=== PATIENT | male | born 1935 | race Caucasian/White ===

== ENCOUNTER 2016-12-14 08:56 | Inpatient (IN) | payer MEDICARE, BC ==
[2016-12-14 09:43] LABS: BASOPHILS % (AUTO) 1 % (0-3); EOSINOPHILS % (AUTO) 0 % (0-9); HEMATOCRIT 44 % (39-53); MEAN CORPUSCULAR HGB CONC 32.7 gm/dl (32.0-36.0); MEAN CORPUSCULAR VOLUME 92 fL (80-100); MONOCYTES % (AUTO) 4.1 % (0-12); NEUTROPHILS % (AUTO) 83.1 % (37-80)
[2016-12-14 10:02] LABS: ALBUMIN 3.3 gm/dl (3.4-5.0); POTASSIUM 4.4 mMol/L (3.5-5.1)
[2016-12-14] MEDS: ACETAMINOPHEN 325 MG PO PRN (11:45)
[2016-12-14] MEDS ORDERED: SODIUM CHLORIDE 0.9% 1000ML 1,000 ML IV ONE (12:29)
[2016-12-14] MEDS ORDERED: NICOTINE 21 MG PATCH TD PRN (12:35)
[2016-12-14 12:53] LABS: APPEARANCE,URINE Clear; BILIRUBIN,URINE NEGATIVE (NEGATIVE); COLOR,URINE Yellow; GLUCOSE, URINE (UA) NEGATIVE (NEGATIVE); KETONES,URINE NEGATIVE (NEGATIVE); LEUKOCYTE ESTERASE ,URINE NEGATIVE (NEGATIVE); NITRATE,URINE NEGATIVE (NEGATIVE); OCCULT BLOOD,URINE NEGATIVE (NEG-TRACE); UROBILINOGEN,URINE 0.2 (0.2-1.0 EU)
[2016-12-14] MEDS ORDERED: SODIUM CHLORIDE 0.9% FLUSH 10 ML SOL IV PRN (13:06)
[2016-12-14 13:22] LABS: RBC,URINE 0-1 (0-3AV/HPF); WBC,URINE 0-1 (0-5AV/HPF)
[2016-12-14] MEDS ORDERED: ALBUTEROL NEB SOL 2.5MG/3ML 1 VIAL SOL NEB PRN (13:43)
[2016-12-14] MEDS ORDERED: POTASSIUM CHLORIDE 2 MEQ/ML SOL IV ONE ×2 (14:15→21:27)
[2016-12-14] MEDS: SODIUM CHLORIDE 0.45% 1000 ML 1,000 ML with POTASSIUM CHLORIDE 2 MEQ/ML 20 MEQ IV SCH ×2 (14:25→21:30)
[2016-12-14] MEDS: PRIMIDONE 250 MG PO SCH ×2 (15:01→21:10)
[2016-12-14] MEDS: ENOXAPARIN 30 MG SOL SC SCH (15:01)
[2016-12-14] MEDS ORDERED: SODIUM CHLORIDE 0.9% 500 ML SOL IV SCH ×2 (17:00→19:15)
[2016-12-14] MEDS ORDERED: SODIUM CHLORIDE 0.9% 500 ML 500 ML IV ONE (20:34)
[2016-12-14] MEDS ORDERED: NOREPINEPHRINE BITARTRATE 4 MG/4 ML SOL IV ONE (21:02)
[2016-12-14] MEDS ORDERED: DEXTROSE 500 ML 500 ML IV ONE (21:04)
[2016-12-14] MEDS: PROPRANOLOL HCL 80 MG PO SCH (21:09)
[2016-12-14] MEDS: SIMVASTATIN 20 MG TAB PO SCH (21:10)
[2016-12-14] MEDS: NOREPINEPHRINE 4 MG/4 ML 4 MG in DEXTROSE 500 ML 500 ML IV SCH (21:17)
[2016-12-15] MEDS ORDERED: POTASSIUM CHLORIDE 2 MEQ/ML SOL IV ONE (02:04)
[2016-12-15] MEDS: ACETAMINOPHEN 325 MG PO PRN (02:19)
[2016-12-15] MEDS: SODIUM CHLORIDE 0.45% 1000 ML 1,000 ML with POTASSIUM CHLORIDE 2 MEQ/ML 20 MEQ IV SCH (03:15)
[2016-12-15] MEDS ORDERED: NOREPINEPHRINE BITARTRATE 4 MG/4 ML SOL IV ONE (03:34)
[2016-12-15] MEDS ORDERED: DEXTROSE 500 ML 500 ML IV ONE (03:34)
[2016-12-15] MEDS: NOREPINEPHRINE 4 MG/4 ML 4 MG in DEXTROSE 500 ML 500 ML IV SCH (05:51)
[2016-12-15 07:38] LABS: BASOPHILS % (AUTO) 2 % (0-3); EOSINOPHILS % (AUTO) 0 % (0-9); HEMATOCRIT 35 % (39-53); MEAN CORPUSCULAR HGB CONC 34.7 gm/dl (32.0-36.0); MEAN CORPUSCULAR VOLUME 91 fL (80-100); MONOCYTES % (AUTO) 7.6 % (0-12); NEUTROPHILS % (AUTO) 75.3 % (37-80)
[2016-12-15 07:40] LABS: CALCIUM 6.8 mg/dl (8.5-10.1); POTASSIUM 4.2 mMol/L (3.5-5.1)
[2016-12-15] MEDS: ENOXAPARIN 30 MG SOL SC SCH (09:30)
[2016-12-15] MEDS: PRIMIDONE 250 MG PO SCH ×3 (09:30→21:49)
[2016-12-15] MEDS: SODIUM CHLORIDE/KCL 20MEQ 1,000 ML IV SCH ×2 (09:30→17:14)
[2016-12-15] MEDS: PROPRANOLOL HCL 80 MG PO SCH ×2 (09:34→21:48)
[2016-12-15] MEDS: TOPIRAMATE 25 MG TAB PO SCH (09:34)
[2016-12-15] MEDS ORDERED: PATIENT EDUCATION 1 MISC PRN (11:19)
[2016-12-15] MEDS: SODIUM CHLORIDE 0.9% FLUSH 10 ML SOL IV SCH ×2 (12:00→21:49)
[2016-12-15] MEDS: SIMVASTATIN 20 MG TAB PO SCH (21:48)
[2016-12-16] MEDS: SODIUM CHLORIDE/KCL 20MEQ 1,000 ML IV SCH (01:17)
[2016-12-16] MEDS: ACETAMINOPHEN 325 MG PO PRN ×2 (01:57→20:39)
[2016-12-16] MEDS: SODIUM CHLORIDE 0.9% FLUSH 10 ML SOL IV SCH ×3 (03:28→18:59)
[2016-12-16 07:17] LABS: CALCIUM 7.3 mg/dl (8.5-10.1); POTASSIUM 4.3 mMol/L (3.5-5.1)
[2016-12-16 07:22] LABS: BASOPHILS % (AUTO) 1 % (0-3); EOSINOPHILS % (AUTO) 2 % (0-9); HEMATOCRIT 34 % (39-53); MEAN CORPUSCULAR HGB CONC 34.7 gm/dl (32.0-36.0); MEAN CORPUSCULAR VOLUME 90 fL (80-100); MONOCYTES % (AUTO) 9.2 % (0-12)
[2016-12-16] MEDS: PRIMIDONE 250 MG PO SCH ×3 (09:51→20:35)
[2016-12-16] MEDS: DEXTROSE/SALINE 0.45% 1,000 ML IV SCH (09:52)
[2016-12-16] MEDS: TOPIRAMATE 25 MG TAB PO SCH (09:52)
[2016-12-16] MEDS: ENOXAPARIN 30 MG SOL SC SCH (09:52)
[2016-12-16] MEDS: SIMVASTATIN 20 MG TAB PO SCH (20:35)
[2016-12-17] MEDS: SODIUM CHLORIDE 0.9% FLUSH 10 ML SOL IV SCH (03:17)
[2016-12-17] MEDS: DEXTROSE/SALINE 0.45% 1,000 ML IV SCH (04:51)
[2016-12-17 06:56] LABS: BASOPHILS % (AUTO) 1 % (0-3); EOSINOPHILS % (AUTO) 4 % (0-9); HEMATOCRIT 36 % (39-53); MEAN CORPUSCULAR HGB CONC 34.7 gm/dl (32.0-36.0); MEAN CORPUSCULAR VOLUME 89 fL (80-100); MONOCYTES % (AUTO) 8.1 % (0-12)
[2016-12-17 07:15] LABS: CALCIUM 7.9 mg/dl (8.5-10.1); POTASSIUM 3.9 mMol/L (3.5-5.1)
[2016-12-17] MEDS ORDERED: FUROSEMIDE 20 MG TAB PO ONE ×2 (08:13→17:58)
[2016-12-17] MEDS: PRIMIDONE 250 MG PO SCH ×3 (08:34→20:27)
[2016-12-17] MEDS: PROPRANOLOL HCL 80 MG PO SCH ×2 (08:35→20:27)
[2016-12-17] MEDS: TOPIRAMATE 25 MG TAB PO SCH (08:35)
[2016-12-17] MEDS: ENOXAPARIN 30 MG SOL SC SCH (08:37)
[2016-12-17] MEDS: ALBUTEROL/IPRATROPIUM 1 VIAL SOL INH SCH ×3 (12:45→20:35)
[2016-12-17] MEDS: SIMVASTATIN 20 MG TAB PO SCH (20:27)
[2016-12-18 07:01] LABS: POTASSIUM 3.6 mMol/L (3.5-5.1)
[2016-12-18 07:12] LABS: BASOPHILS % (AUTO) 1 % (0-3); EOSINOPHILS % (AUTO) 4 % (0-9); HEMATOCRIT 34 % (39-53); MEAN CORPUSCULAR HGB CONC 35.3 gm/dl (32.0-36.0); MEAN CORPUSCULAR VOLUME 88 fL (80-100); MONOCYTES % (AUTO) 9.7 % (0-12)
[2016-12-18] MEDS ORDERED: AZITHROMYCIN 250 MG TAB PO ONE (08:22)
[2016-12-18] MEDS: ALBUTEROL/IPRATROPIUM 1 VIAL SOL INH SCH ×4 (09:30→20:28)
[2016-12-18] MEDS: ENOXAPARIN 30 MG SOL SC SCH (09:33)
[2016-12-18] MEDS: PREDNISONE 20 MG TAB PO SCH (09:33)
[2016-12-18] MEDS: POLYETHYLENE GLYCOL 17 GM/1 TBS PDS PO SCH (09:34)
[2016-12-18] MEDS: PROPRANOLOL HCL 80 MG PO SCH ×2 (09:35→20:28)
[2016-12-18] MEDS: PRIMIDONE 250 MG PO SCH ×3 (09:35→20:28)
[2016-12-18] MEDS: TOPIRAMATE 25 MG TAB PO SCH (09:35)
[2016-12-18] MEDS: SIMVASTATIN 20 MG TAB PO SCH (20:28)
[2016-12-19 07:27] LABS: BASOPHILS % (AUTO) 2 % (0-3); EOSINOPHILS % (AUTO) 3 % (0-9); HEMATOCRIT 37 % (39-53); MEAN CORPUSCULAR VOLUME 90 fL (80-100); MONOCYTES % (AUTO) 8.1 % (0-12); NEUTROPHILS % (AUTO) 66.4 % (37-80)
[2016-12-19 08:02] LABS: CALCIUM 8.3 mg/dl (8.5-10.1); POTASSIUM 4.1 mMol/L (3.5-5.1)
[2016-12-19] MEDS ORDERED: AZITHROMYCIN 250 MG TAB PO SCH (09:00)
[2016-12-19] MEDS: ALBUTEROL/IPRATROPIUM 1 VIAL SOL INH SCH ×4 (10:26→21:54)
[2016-12-19] MEDS: ENOXAPARIN 30 MG SOL SC SCH (10:27)
[2016-12-19] MEDS: POLYETHYLENE GLYCOL 17 GM/1 TBS PDS PO SCH (10:33)
[2016-12-19] MEDS: PRIMIDONE 250 MG PO SCH ×3 (10:33→21:54)
[2016-12-19] MEDS: PREDNISONE 20 MG TAB PO SCH (10:33)
[2016-12-19] MEDS: PROPRANOLOL HCL 80 MG PO SCH ×2 (10:35→21:53)
[2016-12-19] MEDS: TOPIRAMATE 25 MG TAB PO SCH (10:36)
[2016-12-19] MEDS ORDERED: ENOXAPARIN 40 MG SOL SC ONE (11:26)
[2016-12-19] MEDS ORDERED: LEVOFLOXACIN 500 MG TAB PO SCH (12:00)
[2016-12-19] MEDS ORDERED: WARFARIN SODIUM 2.5 MG TAB PO ONE (18:00)
[2016-12-19] MEDS: SIMVASTATIN 20 MG TAB PO SCH (21:54)
[2016-12-19] MEDS: ENOXAPARIN 80 MG SOL SC SCH (21:56)
[2016-12-20 07:16] LABS: BASOPHILS % (AUTO) 2 % (0-3); EOSINOPHILS % (AUTO) 3 % (0-9); HEMATOCRIT 35 % (39-53); MEAN CORPUSCULAR HGB CONC 34.1 gm/dl (32.0-36.0); MEAN CORPUSCULAR VOLUME 89 fL (80-100); MONOCYTES % (AUTO) 8.3 % (0-12); NEUTROPHILS % (AUTO) 59.1 % (37-80)
[2016-12-20 07:17] LABS: POTASSIUM 3.7 mMol/L (3.5-5.1)
[2016-12-20 09:13] VITALS: BP 120/71; RESP 18; TEMP 97.3
[2016-12-20] MEDS: POLYETHYLENE GLYCOL 17 GM/1 TBS PDS PO SCH (09:14)
[2016-12-20] MEDS: PREDNISONE 20 MG TAB PO SCH (09:16)
[2016-12-20] MEDS: ALBUTEROL/IPRATROPIUM 1 VIAL SOL INH SCH (09:16)
[2016-12-20] MEDS: TOPIRAMATE 25 MG TAB PO SCH (09:17)
[2016-12-20] MEDS: PRIMIDONE 250 MG PO SCH (09:17)
[2016-12-20 09:18] VITALS: PULSE 62; O2SAT 92
[2016-12-20] MEDS: ENOXAPARIN 80 MG SOL SC SCH (09:22)
[2016-12-20] MEDS: PROPRANOLOL HCL 80 MG PO SCH (11:21)
== END 2016-12-20 11:30 | disposition swing bed (61) | DRG 640 ==
LOC: ED 08:56 → UNDOADMOB 10:57 → ACUTE CARE 10:57 → OBSVTOIN 20:30
PROVIDERS: ADMIT Family Medicine; ATTEND Family Medicine
PROC: F01ZDFZ Gait and/or Balance Assessment using Assistive, Adaptive, Supportive or Protective Equipment (ICD-10-PCS; principal; 2016-12-17)
PROC: F01ZCZZ Transfer Assessment (ICD-10-PCS; 2016-12-17)
PROC: F01L5ZZ Range of Motion and Joint Integrity Assessment of Musculoskeletal System - Lower Back / Lower Extremity (ICD-10-PCS; 2016-12-17)
DX: E86.0 Dehydration (principal); I26.99 Other pulmonary embolism without acute cor pulmonale; K52.9 Noninfective gastroenteritis and colitis, unspecified; I95.9 Hypotension, unspecified; J18.9 Pneumonia, unspecified organism; J44.9 Chronic obstructive pulmonary disease, unspecified; E11.9 Type 2 diabetes mellitus without complications; R25.1 Tremor, unspecified; I10 Essential (primary) hypertension; E78.00 Pure hypercholesterolemia, unspecified; R09.02 Hypoxemia
CPT/HCPCS: 36415; 71010; 71260; 80048; 80053; 81001; 82962; 84484; 85025; 85610; 87040; 93005; 94010; 94150; 94640; 94664; 99070; 99283; 99284; J1650; J3480; J7603; J7620; Q9967

== ENCOUNTER 2016-12-20 09:08 | Inpatient (IN) | payer MEDICARE, BC ==
[2016-12-20] MEDS ORDERED: ALBUTEROL NEB SOL 2.5MG/3ML 1 VIAL SOL NEB PRN (09:51)
[2016-12-20] MEDS ORDERED: ACETAMINOPHEN 325 MG PO PRN (09:51)
[2016-12-20] MEDS ORDERED: NICOTINE 21 MG PATCH TD PRN (09:52)
[2016-12-20] MEDS ORDERED: ALBUTEROL INH SCH (10:00)
[2016-12-20] MEDS ORDERED: [UNRECOGNIZED DRUG - OTHER] INH SCH (10:00)
[2016-12-20] MEDS: LEVOFLOXACIN 500 MG TAB PO SCH (14:05)
[2016-12-20] MEDS: PRIMIDONE 250 MG PO SCH ×2 (14:05→20:40)
[2016-12-20] MEDS ORDERED: WARFARIN SODIUM 5 MG TAB PO SCH (18:00)
[2016-12-20] MEDS: FLUTICASONE/SALMETEROL 250/50 1 PUFF DSK INH SCH (20:39)
[2016-12-20] MEDS: ENOXAPARIN 80 MG SOL SC SCH (20:39)
[2016-12-20] MEDS: SIMVASTATIN 20 MG TAB PO SCH (20:41)
[2016-12-20] MEDS: PROPRANOLOL HCL 80 MG PO SCH (20:41)
[2016-12-20] MEDS ORDERED: ENOXAPARIN 80 MG SOL SC SCH (21:00)
[2016-12-21] MEDS: PRIMIDONE 250 MG PO SCH ×3 (09:49→21:13)
[2016-12-21] MEDS: FLUTICASONE/SALMETEROL 250/50 1 PUFF DSK INH SCH ×2 (09:50→21:12)
[2016-12-21] MEDS: ENOXAPARIN 80 MG SOL SC SCH ×2 (09:50→21:12)
[2016-12-21] MEDS: PROPRANOLOL HCL 80 MG PO SCH ×2 (09:51→21:13)
[2016-12-21] MEDS: POLYETHYLENE GLYCOL 17 GM/1 TBS PDS PO SCH (09:52)
[2016-12-21] MEDS: PREDNISONE 20 MG TAB PO SCH (09:53)
[2016-12-21] MEDS: TOPIRAMATE 25 MG TAB PO SCH (09:53)
[2016-12-21] MEDS: LISINOPRIL 20 MG TAB PO SCH (09:54)
[2016-12-21] MEDS: LEVOFLOXACIN 500 MG TAB PO SCH (11:45)
[2016-12-21] MEDS: TIOTROPIUM BROMIDE 18 MCG CAP INH SCH (14:40)
[2016-12-21] MEDS ORDERED: WARFARIN SODIUM 2.5 MG TAB PO SCH (18:00)
[2016-12-21] MEDS: SIMVASTATIN 20 MG TAB PO SCH (21:14)
[2016-12-22] MEDS: PRIMIDONE 250 MG PO SCH ×3 (09:00→20:41)
[2016-12-22] MEDS: PROPRANOLOL HCL 80 MG PO SCH ×2 (09:01→20:41)
[2016-12-22] MEDS: POLYETHYLENE GLYCOL 17 GM/1 TBS PDS PO SCH (09:01)
[2016-12-22] MEDS: TOPIRAMATE 25 MG TAB PO SCH (09:02)
[2016-12-22] MEDS: PREDNISONE 20 MG TAB PO SCH (09:02)
[2016-12-22] MEDS: LISINOPRIL 20 MG TAB PO SCH (09:03)
[2016-12-22] MEDS: FLUTICASONE/SALMETEROL 250/50 1 PUFF DSK INH SCH ×2 (09:04→20:41)
[2016-12-22] MEDS: TIOTROPIUM BROMIDE 18 MCG CAP INH SCH (09:04)
[2016-12-22] MEDS: LEVOFLOXACIN 500 MG TAB PO SCH (12:08)
[2016-12-22] MEDS: WARFARIN SODIUM 3 MG TAB PO SCH (17:36)
[2016-12-22] MEDS: SIMVASTATIN 20 MG TAB PO SCH (20:42)
[2016-12-23] MEDS: FLUTICASONE/SALMETEROL 250/50 1 PUFF DSK INH SCH ×2 (08:21→20:16)
[2016-12-23] MEDS: POLYETHYLENE GLYCOL 17 GM/1 TBS PDS PO SCH (08:23)
[2016-12-23] MEDS: PRIMIDONE 250 MG PO SCH ×3 (08:24→20:17)
[2016-12-23] MEDS: PROPRANOLOL HCL 80 MG PO SCH ×2 (08:24→20:16)
[2016-12-23] MEDS: PREDNISONE 20 MG TAB PO SCH (08:24)
[2016-12-23] MEDS: TIOTROPIUM BROMIDE 18 MCG CAP INH SCH (08:25)
[2016-12-23] MEDS: TOPIRAMATE 25 MG TAB PO SCH (08:26)
[2016-12-23] MEDS: LISINOPRIL 20 MG TAB PO SCH (08:27)
[2016-12-23] MEDS: LEVOFLOXACIN 500 MG TAB PO SCH (12:04)
[2016-12-23] MEDS: WARFARIN SODIUM 3 MG TAB PO SCH (17:29)
[2016-12-23] MEDS: SIMVASTATIN 20 MG TAB PO SCH (20:17)
[2016-12-24 08:52] VITALS: RESP 24; O2SAT 93
[2016-12-24] MEDS: POLYETHYLENE GLYCOL 17 GM/1 TBS PDS PO SCH (09:37)
[2016-12-24] MEDS: PROPRANOLOL HCL 80 MG PO SCH ×2 (09:37→20:27)
[2016-12-24] MEDS: PRIMIDONE 250 MG PO SCH ×3 (09:37→20:26)
[2016-12-24] MEDS: LISINOPRIL 20 MG TAB PO SCH (09:38)
[2016-12-24] MEDS: TOPIRAMATE 25 MG TAB PO SCH (09:38)
[2016-12-24] MEDS: FLUTICASONE/SALMETEROL 250/50 1 PUFF DSK INH SCH ×2 (09:39→20:28)
[2016-12-24] MEDS: TIOTROPIUM BROMIDE 18 MCG CAP INH SCH (11:57)
[2016-12-24] MEDS: LEVOFLOXACIN 500 MG TAB PO SCH (11:57)
[2016-12-24] MEDS ORDERED: WARFARIN SODIUM 1 MG TAB PO ONE (18:00)
[2016-12-24] MEDS: SIMVASTATIN 20 MG TAB PO SCH (20:27)
[2016-12-25 07:52] VITALS: BP 99/58; PULSE 58; TEMP 97.8
[2016-12-25] MEDS: POLYETHYLENE GLYCOL 17 GM/1 TBS PDS PO SCH (08:51)
[2016-12-25] MEDS: PROPRANOLOL HCL 80 MG PO SCH (08:52)
[2016-12-25] MEDS: PRIMIDONE 250 MG PO SCH ×2 (08:52→13:26)
[2016-12-25] MEDS: TOPIRAMATE 25 MG TAB PO SCH (08:52)
[2016-12-25] MEDS: LISINOPRIL 20 MG TAB PO SCH (08:53)
[2016-12-25] MEDS: TIOTROPIUM BROMIDE 18 MCG CAP INH SCH (08:53)
[2016-12-25] MEDS: FLUTICASONE/SALMETEROL 250/50 1 PUFF DSK INH SCH (08:54)
[2016-12-25] MEDS ORDERED: PNEUMOCOCCAL VACCINE 0.5 ML SOL IM ONE (09:40)
[2016-12-25] MEDS: LEVOFLOXACIN 500 MG TAB PO SCH (12:07)
[2016-12-25] MEDS ORDERED: WARFARIN SODIUM 3 MG TAB PO ONE (18:00)
== END 2016-12-25 14:00 | disposition home health service (06) | DRG 190 ==
LOC: ACUTE CARE 11:35
PROVIDERS: ADMIT Family Medicine; ATTEND Family Medicine
PROC: F01ZDFZ Gait and/or Balance Assessment using Assistive, Adaptive, Supportive or Protective Equipment (ICD-10-PCS; principal; 2016-12-20)
PROC: F01ZBZZ Bed Mobility Assessment (ICD-10-PCS; 2016-12-20)
PROC: F01ZCZZ Transfer Assessment (ICD-10-PCS; 2016-12-20)
PROC: F02Z1ZZ Dressing Assessment (ICD-10-PCS; 2016-12-20)
PROC: F02Z0ZZ Bathing/Showering Assessment (ICD-10-PCS; 2016-12-20)
PROC: F02Z3ZZ Grooming/Personal Hygiene Assessment (ICD-10-PCS; 2016-12-20)
DX: J44.0 Chronic obstructive pulmonary disease with (acute) lower respiratory infection (principal); J18.9 Pneumonia, unspecified organism; I26.99 Other pulmonary embolism without acute cor pulmonale; I10 Essential (primary) hypertension; R53.1 Weakness
CPT/HCPCS: 36415; 82962; 85610; 90732; 94760; J1650; A6232

== ENCOUNTER 2017-07-02 14:59 | Inpatient (IN) | payer MEDICARE, BC ==
[2017-07-02] MEDS ORDERED: ONDANSETRON HCL 4 MG/2 ML SOL IV ONE (15:28)
[2017-07-02] MEDS ORDERED: SODIUM CHLORIDE 0.9% 1000 ML SOL IV SCH (15:30)
[2017-07-02] MEDS ORDERED: SODIUM CHLORIDE 0.9% FLUSH 10 ML SOL IV PRN (15:48)
[2017-07-02] MEDS ORDERED: ONDANSETRON HCL 4 MG/2 ML SOL ONE (15:53)
[2017-07-02 15:55] LABS: BASOPHILS % (AUTO) 1 % (0-3); EOSINOPHILS % (AUTO) 3 % (0-9); HEMATOCRIT 45 % (39-53); MEAN CORPUSCULAR HGB CONC 32.8 gm/dl (32.0-36.0); MEAN CORPUSCULAR VOLUME 85 fL (80-100); MONOCYTES % (AUTO) 6.8 % (0-12)
[2017-07-02 16:01] LABS: CALCIUM 8.8 mg/dl (8.5-10.1); POTASSIUM 4.9 mMol/L (3.5-5.1)
[2017-07-02] MEDS ORDERED: WARFARIN SODIUM 5 MG TAB PO SCH (19:00)
[2017-07-02] MEDS ORDERED: PROPRANOLOL HCL 160 MG PO SCH (21:00)
[2017-07-02] MEDS: PRIMIDONE 250 MG PO SCH (21:29)
[2017-07-02] MEDS: SODIUM CHLORIDE/KCL 20MEQ 1,000 ML IV SCH (21:30)
[2017-07-02] MEDS: TOPIRAMATE 25 MG TAB PO SCH (21:33)
[2017-07-03] MEDS: SODIUM CHLORIDE/KCL 20MEQ 1,000 ML IV SCH (02:59)
[2017-07-03] MEDS: ACETAMINOPHEN 325 MG PO PRN ×3 (05:25→14:18)
[2017-07-03 07:28] LABS: CALCIUM 7.1 mg/dl (8.5-10.1); POTASSIUM 4.6 mMol/L (3.5-5.1)
[2017-07-03] MEDS ORDERED: SODIUM CHLORIDE 0.45% 1000 ML 1,000 ML with POTASSIUM CHLORIDE 2 MEQ/ML 20 MEQ IV SCH (08:45)
[2017-07-03] MEDS ORDERED: GLIMEPIRIDE 1 MG PO SCH (09:00)
[2017-07-03] MEDS ORDERED: ASPIRIN EC 81 MG PO SCH (09:00)
[2017-07-03] MEDS ORDERED: PROPRANOLOL HCL 160 MG PO SCH (09:00)
[2017-07-03] MEDS ORDERED: PROPRANOLOL HCL 40 MG TAB PO SCH (09:00)
[2017-07-03] MEDS ORDERED: GLIMEPIRIDE 2 MG TAB PO SCH (09:00)
[2017-07-03] MEDS ORDERED: PROPRANOLOL HYDROCHLORIDE PO SCH (09:45)
[2017-07-03] MEDS: TOPIRAMATE 25 MG TAB PO SCH (10:15)
[2017-07-03] MEDS: PRIMIDONE 250 MG PO SCH ×2 (10:17→14:20)
[2017-07-03 10:23] VITALS: O2SAT 93
[2017-07-03] MEDS ORDERED: AZITHROMYCIN 250 MG TAB PO ONE (10:48)
[2017-07-03] MEDS ORDERED: CEFTRIAXONE 1 GM PDS IV SCH (10:52)
[2017-07-03] MEDS ORDERED: SODIUM CHLORIDE 0.9% 1000ML 1,000 ML IV ONE ×2 (10:54→13:02)
[2017-07-03] MEDS ORDERED: CEFTRIAXONE 1 GM (PREMIX) SOL IV SCH (11:15)
[2017-07-03] MEDS ORDERED: VANCOMYCIN HCL 500 MG PDS 1,000 MG in SODIUM CHLORIDE 0.9% 250 ML 250 ML IV ONE (13:03)
[2017-07-03 13:43] LABS: ABG PH 7.31 (7.35-7.45)
[2017-07-03] MEDS ORDERED: VANCOMYCIN HYDROCHLORIDE 500 MG PDS IV ONE (14:07)
[2017-07-03] MEDS ORDERED: SODIUM CHLORIDE 0.9% 250 ML 250 ML IV ONE (14:07)
[2017-07-03] MEDS ORDERED: PHARMACOKINETICS 1 MISC PRN (14:10)
[2017-07-03 14:40] VITALS: BP 82/49; PULSE 80; RESP 30; TEMP 100.3
[2017-07-03] MEDS ORDERED: WARFARIN SODIUM 2.5 MG TAB PO SCH (18:58)
[2017-07-03] MEDS ORDERED: SIMVASTATIN 20 MG TAB PO SCH (21:00)
[2017-07-04] MEDS ORDERED: AZITHROMYCIN 250 MG TAB PO SCH (09:00)
[2017-07-04] MEDS ORDERED: VANCOMYCIN HCL 500 MG PDS 1,000 MG in SODIUM CHLORIDE 0.9% 250 ML 250 ML IV SCH (14:00)
== END 2017-07-03 14:55 | disposition short-term general hospital (02) | DRG 871 ==
LOC: ED 14:59 → ACUTE CARE 18:05
PROVIDERS: ADMIT Family Medicine; ATTEND Family Medicine
DX: A41.9 Sepsis, unspecified organism (principal); J18.9 Pneumonia, unspecified organism; E86.0 Dehydration; E11.9 Type 2 diabetes mellitus without complications; J44.9 Chronic obstructive pulmonary disease, unspecified; K52.9 Noninfective gastroenteritis and colitis, unspecified; G25.0 Essential tremor; I10 Essential (primary) hypertension; R09.02 Hypoxemia; Z86.711 Personal history of pulmonary embolism; Z79.01 Long term (current) use of anticoagulants
CPT/HCPCS: 36415; 36600; 71010; 80048; 82803; 82962; 85025; 85610; 85651; 87040; 87804; 93012; 96365; 96374; 99070; 99282; 99284; J0696; J2405; J3370; J3480

== ENCOUNTER 2018-05-17 18:08 | Emergency (ER) | payer MEDICARE, BC ==
[2018-05-17 18:45] VITALS: BP 129/73; PULSE 66; RESP 20; TEMP 97.6; O2SAT 98
== END 2018-05-17 19:03 | disposition home or self-care (01) | DRG 605 ==
LOC: ED 18:08
DX: S81.011A Laceration without foreign body, right knee, initial encounter (principal)
CPT/HCPCS: 99282; 99283; A6446

== ENCOUNTER 2018-07-28 09:33 | Emergency (ER) | payer MEDICARE, BC ==
[2018-07-28 10:34] LABS: BASOPHILS % (AUTO) 1 % (0-3); EOSINOPHILS % (AUTO) 5 % (0-9); HEMATOCRIT 47 % (39-53); LYMPHOCYTES % (AUTO) 24.4 % (10-50); MEAN CORPUSCULAR HEMOGLOBIN 32.4 pg (27.0-32.0); MEAN CORPUSCULAR HGB CONC 32.3 gm/dl (32.0-36.0); NEUTROPHILS % (AUTO) 64.8 % (37-80)
[2018-07-28 10:37] LABS: MEAN CORPUSCULAR VOLUME 101 fL (80-100)
[2018-07-28 10:40] LABS: CALCIUM 8.5 mg/dl (8.5-10.1); CREATININE 1.21 mg/dl (0.80-1.30); POTASSIUM 4.2 mMol/L (3.5-5.1)
[2018-07-28 10:41] LABS: INR 3.41 (0.86-1.12)
[2018-07-28 12:40] VITALS: RESP 20
[2018-07-28] MEDS ORDERED: SODIUM CHLORIDE 0.9% 500 ML 500 ML IV ONE (13:06)
[2018-07-28] MEDS ORDERED: SODIUM CHLORIDE 0.9% 1000ML 1,000 ML IV SCH (13:15)
[2018-07-28 14:04] VITALS: TEMP 97
[2018-07-28 14:06] VITALS: O2SAT 90
[2018-07-28 14:09] VITALS: BP 89/51; PULSE 57
== END 2018-07-28 13:38 | disposition short-term general hospital (02) | DRG 536 ==
LOC: ED 09:33
DX: S72.011A Unspecified intracapsular fracture of right femur, initial encounter for closed fracture (principal); W06.XXXA Fall from bed, initial encounter; Z79.01 Long term (current) use of anticoagulants; S61.212A Laceration without foreign body of right middle finger without damage to nail, initial encounter
CPT/HCPCS: 99285; G0168; 36415; 70450; 71045; 73552; 80048; 85025; 85610; 93005; 96365; 99284; A6402

== ENCOUNTER 2018-08-04 10:59 | Inpatient (IN) | payer MEDICARE, BC ==
[2018-08-04 15:22] VITALS: RESP 18
[2018-08-04] MEDS ORDERED: ALBUTEROL/IPRATROPIUM 1 VIAL SOL INH PRN (18:03)
[2018-08-04] MEDS ORDERED: POLYETHYLENE GLYCOL 17 GM/1 TBS PDS PO PRN (18:03)
[2018-08-04] MEDS ORDERED: TRAMADOL HYDROCHLORIDE 50 MG TAB PO PRN (18:03)
[2018-08-04] MEDS: NOVOLOG FLEXPEN SC SCH ×2 (18:53→20:45)
[2018-08-04] MEDS: AMOXIL/CLAVULANATE 400/5 ML PDR PO SCH (21:14)
[2018-08-04] MEDS: FAMOTIDINE 20 MG TAB PO SCH (21:14)
[2018-08-04] MEDS: SIMVASTATIN 20 MG TAB PO SCH (21:15)
[2018-08-04] MEDS: SERTRALINE HYDROCHLORIDE 50 MG TAB PO SCH (21:16)
[2018-08-04] MEDS: LACTOBACILLUS RHAMNOSUS GG PO SCH (21:17)
[2018-08-04] MEDS: PRIMIDONE 250 MG PO SCH (21:28)
[2018-08-04] MEDS: TOPIRAMATE 25 MG TAB PO SCH (22:02)
[2018-08-05 07:37] LABS: CALCIUM 8.2 mg/dl (8.5-10.1); CREATININE 0.93 mg/dl (0.80-1.30)
[2018-08-05 07:40] LABS: HEMATOCRIT 34 % (39-53); MEAN CORPUSCULAR HEMOGLOBIN 33.1 pg (27.0-32.0); MEAN CORPUSCULAR HGB CONC 32.6 gm/dl (32.0-36.0)
[2018-08-05 08:03] LABS: MEAN CORPUSCULAR VOLUME 102 fL (80-100)
[2018-08-05 08:20] LABS: ANISOCYTOSIS SLIGHT AMT; BAND NEUTROPHILS % (MANUAL) 0 %; BASOPHILS % (MANUAL) 0 % (0-3); EOSINOPHILS % (MANUAL) 2 % (0-9); LYMPHOCYTES % (MANUAL) 15 % (10-50); MONOCYTES % (MANUAL) 6 % (0-12); NEUTROPHILS % (MANUAL) 77 % (37-80); OVALOCYTES PRESENT; POIKILOCYTOSIS SLIGHT AMT
[2018-08-05] MEDS ORDERED: ALBUTEROL NEB SOL 2.5MG/3ML 1 VIAL SOL NEB PRN (08:35)
[2018-08-05] MEDS ORDERED: NOVOLOG FLEXPEN SC SCH (09:00)
[2018-08-05] MEDS: AMOXIL/CLAVULANATE 400/5 ML PDR PO SCH ×3 (09:49→20:50)
[2018-08-05] MEDS: PRIMIDONE 250 MG PO SCH ×3 (09:49→20:52)
[2018-08-05] MEDS: LACTOBACILLUS RHAMNOSUS GG PO SCH ×2 (09:50→20:51)
[2018-08-05] MEDS ORDERED: ASPIRIN 81 MG CHEWABLE CTB ONE (10:01)
[2018-08-05] MEDS: FERROUS GLUCONATE 324 MG TABLET PO SCH (10:04)
[2018-08-05] MEDS: TAMSULOSIN HYDROCHLORIDE 0.4 MG CAP PO SCH (10:04)
[2018-08-05] MEDS: ASPIRIN EC 81 MG PO SCH (10:04)
[2018-08-05] MEDS: SENNOSIDES A AND B 8.6 MG TAB PO SCH (10:04)
[2018-08-05] MEDS: TOPIRAMATE 25 MG TAB PO SCH ×2 (10:05→20:58)
[2018-08-05] MEDS: NOVOLOG FLEXPEN SC SCH ×3 (10:42→19:01)
[2018-08-05] MEDS: TIOTROPIUM BROMIDE 18 MCG CAP INH SCH (10:43)
[2018-08-05] MEDS: PROPRANOLOL HYDROCHLORIDE PO SCH (10:50)
[2018-08-05] MEDS: SERTRALINE HYDROCHLORIDE 50 MG TAB PO SCH (20:55)
[2018-08-05] MEDS: FAMOTIDINE 20 MG TAB PO SCH (20:56)
[2018-08-05] MEDS: SIMVASTATIN 20 MG TAB PO SCH (20:56)
[2018-08-06 07:23] LABS: CALCIUM 8.1 mg/dl (8.5-10.1); CARBON DIOXIDE 26.9 mEq/L (21-32); CREATININE 0.96 mg/dl (0.80-1.30); POTASSIUM 3.9 mMol/L (3.5-5.1)
[2018-08-06 07:27] LABS: HEMATOCRIT 34 % (39-53); MEAN CORPUSCULAR HEMOGLOBIN 32.4 pg (27.0-32.0); MEAN CORPUSCULAR HGB CONC 32.2 gm/dl (32.0-36.0)
[2018-08-06 07:51] LABS: MEAN CORPUSCULAR VOLUME 101 fL (80-100)
[2018-08-06 07:52] LABS: BAND NEUTROPHILS % (MANUAL) 0 %; LYMPHOCYTES % (MANUAL) 13 % (10-50); NEUTROPHILS % (MANUAL) 72 % (37-80)
[2018-08-06 07:53] LABS: ANISOCYTOSIS SLIGHT; BASOPHILS % (MANUAL) 1 % (0-3); EOSINOPHILS % (MANUAL) 4 % (0-9); MONOCYTES % (MANUAL) 10 % (0-12)
[2018-08-06] MEDS: NOVOLOG FLEXPEN SC SCH ×3 (08:36→17:35)
[2018-08-06] MEDS: AMOXIL/CLAVULANATE 400/5 ML PDR PO SCH ×3 (08:43→21:04)
[2018-08-06] MEDS: LACTOBACILLUS RHAMNOSUS GG PO SCH ×2 (08:45→20:57)
[2018-08-06] MEDS: PROPRANOLOL HYDROCHLORIDE PO SCH (08:45)
[2018-08-06] MEDS: PRIMIDONE 250 MG PO SCH ×3 (08:46→20:56)
[2018-08-06] MEDS: TAMSULOSIN HYDROCHLORIDE 0.4 MG CAP PO SCH (08:48)
[2018-08-06] MEDS: FERROUS GLUCONATE 324 MG TABLET PO SCH (08:48)
[2018-08-06] MEDS: ASPIRIN EC 81 MG PO SCH (08:48)
[2018-08-06] MEDS: TOPIRAMATE 25 MG TABLET PO SCH ×2 (09:04→21:01)
[2018-08-06] MEDS: LISINOPRIL 5 MG TAB PO SCH (09:05)
[2018-08-06] MEDS: SENNOSIDES A AND B 8.6 MG TAB PO SCH (09:06)
[2018-08-06] MEDS: TIOTROPIUM BROMIDE 18 MCG CAP INH SCH (09:09)
[2018-08-06] MEDS: SIMVASTATIN 20 MG TAB PO SCH (20:59)
[2018-08-06] MEDS: FAMOTIDINE 20 MG TAB PO SCH (21:00)
[2018-08-06] MEDS: SERTRALINE HYDROCHLORIDE 50 MG TAB PO SCH (21:01)
[2018-08-07] MEDS: NOVOLOG FLEXPEN SC SCH ×3 (08:10→18:00)
[2018-08-07] MEDS: AMOXIL/CLAVULANATE 400/5 ML PDR PO SCH ×3 (08:26→20:08)
[2018-08-07] MEDS: ASPIRIN EC 81 MG PO SCH (08:29)
[2018-08-07] MEDS: TAMSULOSIN HYDROCHLORIDE 0.4 MG CAP PO SCH (08:30)
[2018-08-07] MEDS: FERROUS GLUCONATE 324 MG TABLET PO SCH (08:30)
[2018-08-07] MEDS: SENNOSIDES A AND B 8.6 MG TAB PO SCH (08:30)
[2018-08-07] MEDS: LACTOBACILLUS RHAMNOSUS GG PO SCH ×2 (08:32→20:10)
[2018-08-07] MEDS: PROPRANOLOL HYDROCHLORIDE PO SCH (08:32)
[2018-08-07] MEDS: PRIMIDONE 250 MG PO SCH ×3 (08:33→20:12)
[2018-08-07] MEDS: TOPIRAMATE 25 MG TABLET PO SCH ×2 (08:34→20:11)
[2018-08-07] MEDS: LISINOPRIL 5 MG TAB PO SCH (08:34)
[2018-08-07] MEDS: TIOTROPIUM BROMIDE 18 MCG CAP INH SCH (08:39)
[2018-08-07] MEDS: SIMVASTATIN 20 MG TAB PO SCH (20:11)
[2018-08-07] MEDS: FAMOTIDINE 20 MG TAB PO SCH (20:11)
[2018-08-07] MEDS: SERTRALINE HYDROCHLORIDE 50 MG TAB PO SCH (20:12)
[2018-08-08] MEDS: ACETAMINOPHEN 325 MG PO PRN (05:11)
[2018-08-08] MEDS: NOVOLOG FLEXPEN SC SCH ×3 (09:57→17:29)
[2018-08-08] MEDS: ASPIRIN EC 81 MG PO SCH (10:01)
[2018-08-08] MEDS: LACTOBACILLUS RHAMNOSUS GG PO SCH ×2 (10:01→21:34)
[2018-08-08] MEDS: SENNOSIDES A AND B 8.6 MG TAB PO SCH (10:02)
[2018-08-08] MEDS: FERROUS GLUCONATE 324 MG TABLET PO SCH (10:02)
[2018-08-08] MEDS: PROPRANOLOL HYDROCHLORIDE PO SCH (10:03)
[2018-08-08] MEDS: LISINOPRIL 5 MG TAB PO SCH (10:03)
[2018-08-08] MEDS: TAMSULOSIN HYDROCHLORIDE 0.4 MG CAP PO SCH (10:05)
[2018-08-08] MEDS: TOPIRAMATE 25 MG TABLET PO SCH ×2 (10:06→21:35)
[2018-08-08] MEDS: AMOXIL/CLAVULANATE 400/5 ML PDR PO SCH ×3 (10:14→21:32)
[2018-08-08] MEDS: TIOTROPIUM BROMIDE 18 MCG CAP INH SCH (10:17)
[2018-08-08] MEDS: PRIMIDONE 250 MG PO SCH ×3 (12:31→21:33)
[2018-08-08] MEDS: SIMVASTATIN 20 MG TAB PO SCH (21:35)
[2018-08-08] MEDS: SERTRALINE HYDROCHLORIDE 50 MG TAB PO SCH (21:35)
[2018-08-08] MEDS: FAMOTIDINE 20 MG TAB PO SCH (21:35)
[2018-08-09] MEDS: SENNOSIDES A AND B 8.6 MG TAB PO SCH (08:50)
[2018-08-09] MEDS: TOPIRAMATE 25 MG TABLET PO SCH ×2 (08:50→21:11)
[2018-08-09] MEDS: ASPIRIN EC 81 MG PO SCH (08:50)
[2018-08-09] MEDS: LACTOBACILLUS RHAMNOSUS GG PO SCH ×2 (08:50→21:09)
[2018-08-09] MEDS: FERROUS GLUCONATE 324 MG TABLET PO SCH (08:51)
[2018-08-09] MEDS: TAMSULOSIN HYDROCHLORIDE 0.4 MG CAP PO SCH (08:51)
[2018-08-09] MEDS: PRIMIDONE 250 MG PO SCH ×3 (08:52→21:10)
[2018-08-09] MEDS: NOVOLOG FLEXPEN SC SCH ×3 (08:52→17:31)
[2018-08-09] MEDS: LISINOPRIL 5 MG TAB PO SCH (08:52)
[2018-08-09] MEDS: PROPRANOLOL HYDROCHLORIDE PO SCH (08:53)
[2018-08-09] MEDS: TIOTROPIUM BROMIDE 18 MCG CAP INH SCH (08:58)
[2018-08-09] MEDS: AMOXIL/CLAVULANATE 400/5 ML PDR PO SCH ×3 (08:59→21:08)
[2018-08-09] MEDS: FAMOTIDINE 20 MG TAB PO SCH (21:09)
[2018-08-09] MEDS: SIMVASTATIN 20 MG TAB PO SCH (21:10)
[2018-08-09] MEDS: SERTRALINE HYDROCHLORIDE 50 MG TAB PO SCH (21:11)
[2018-08-09] MEDS: ACETAMINOPHEN 325 MG PO PRN (21:32)
[2018-08-10] MEDS: NOVOLOG FLEXPEN SC SCH ×3 (08:28→17:28)
[2018-08-10] MEDS: ACETAMINOPHEN 325 MG PO PRN ×2 (09:03→16:01)
[2018-08-10] MEDS: ASPIRIN EC 81 MG PO SCH (09:04)
[2018-08-10] MEDS: AMOXIL/CLAVULANATE 400/5 ML PDR PO SCH ×3 (09:05→21:31)
[2018-08-10] MEDS: TAMSULOSIN HYDROCHLORIDE 0.4 MG CAP PO SCH (09:07)
[2018-08-10] MEDS: FERROUS GLUCONATE 324 MG TABLET PO SCH (09:07)
[2018-08-10] MEDS: PRIMIDONE 250 MG PO SCH ×3 (09:08→21:32)
[2018-08-10] MEDS: LACTOBACILLUS RHAMNOSUS GG PO SCH ×2 (09:08→21:44)
[2018-08-10] MEDS: TOPIRAMATE 25 MG TABLET PO SCH ×2 (09:09→21:32)
[2018-08-10] MEDS: SENNOSIDES A AND B 8.6 MG TAB PO SCH (09:10)
[2018-08-10] MEDS: LISINOPRIL 5 MG TAB PO SCH (09:11)
[2018-08-10] MEDS: PROPRANOLOL HYDROCHLORIDE PO SCH (09:11)
[2018-08-10] MEDS: TIOTROPIUM BROMIDE 18 MCG CAP INH SCH (10:49)
[2018-08-10] MEDS: FAMOTIDINE 20 MG TAB PO SCH (21:31)
[2018-08-10] MEDS: SERTRALINE HYDROCHLORIDE 50 MG TAB PO SCH (21:33)
[2018-08-10] MEDS: SIMVASTATIN 20 MG TAB PO SCH (21:33)
[2018-08-11 07:30] LABS: HEMATOCRIT 37 % (39-53); HEMOGLOBIN 11.8 gm/dl (13.5-17.7); MEAN CORPUSCULAR HEMOGLOBIN 31.9 pg (27.0-32.0)
[2018-08-11 07:35] LABS: MEAN CORPUSCULAR VOLUME 100 fL (80-100)
[2018-08-11 07:44] LABS: ALBUMIN 2.1 gm/dl (3.4-5.0); BILIRUBIN,TOTAL 0.6 mg/dl (0.2-1.0); CALCIUM 8.5 mg/dl (8.5-10.1); CARBON DIOXIDE 24.5 mEq/L (21-32); CREATININE 1.37 mg/dl (0.80-1.30)
[2018-08-11 08:15] LABS: BAND NEUTROPHILS % (MANUAL) 8 %; BASOPHILS % (MANUAL) 0 % (0-3); EOSINOPHILS % (MANUAL) 0 % (0-9); LYMPHOCYTES % (MANUAL) 5 % (10-50); MONOCYTES % (MANUAL) 4 % (0-12); NEUTROPHILS % (MANUAL) 83 % (37-80)
[2018-08-11 08:16] LABS: NORMAL RBCS PRESENT
[2018-08-11] MEDS: SODIUM CHLORIDE 0.9% 1000ML 1,000 ML IV SCH ×2 (08:54→14:03)
[2018-08-11] MEDS: NOVOLOG FLEXPEN SC SCH ×2 (09:53→13:21)
[2018-08-11 10:38] VITALS: BP 98/60; PULSE 52; TEMP 98.2
[2018-08-11 12:30] LABS: ABG PH 7.4 (7.35-7.45)
[2018-08-11 12:34] VITALS: O2SAT 86
[2018-08-11] MEDS: PRIMIDONE 250 MG PO SCH (13:54)
[2018-08-11] MEDS: LACTOBACILLUS RHAMNOSUS GG PO SCH (13:54)
[2018-08-11] MEDS: AMOXIL/CLAVULANATE 400/5 ML PDR PO SCH (13:54)
[2018-08-11] MEDS: ASPIRIN EC 81 MG PO SCH (13:55)
[2018-08-11] MEDS: FERROUS GLUCONATE 324 MG TABLET PO SCH (14:05)
[2018-08-11] MEDS: TAMSULOSIN HYDROCHLORIDE 0.4 MG CAP PO SCH (14:05)
[2018-08-11] MEDS: PROPRANOLOL HYDROCHLORIDE PO SCH (14:06)
[2018-08-11] MEDS: SENNOSIDES A AND B 8.6 MG TAB PO SCH (14:06)
[2018-08-11] MEDS: TIOTROPIUM BROMIDE 18 MCG CAP INH SCH (14:06)
[2018-08-11] MEDS: LISINOPRIL 5 MG TAB PO SCH (14:07)
[2018-08-11] MEDS: TOPIRAMATE 25 MG TABLET PO SCH (14:07)
== END 2018-08-11 09:30 | disposition critical access hospital (66) | DRG 560 ==
LOC: ACUTE CARE 13:53
PROVIDERS: ADMIT Family Medicine; ATTEND Family Medicine
PROC: F01ZBFZ Bed Mobility Assessment using Assistive, Adaptive, Supportive or Protective Equipment (ICD-10-PCS; principal; 2018-08-04)
PROC: F01ZCFZ Transfer Assessment using Assistive, Adaptive, Supportive or Protective Equipment (ICD-10-PCS; 2018-08-04)
PROC: F01K5YZ Range of Motion and Joint Integrity Assessment of Musculoskeletal System - Upper Back / Upper Extremity using Other Equipment (ICD-10-PCS; 2018-08-06)
PROC: F02Z3FZ Grooming/Personal Hygiene Assessment using Assistive, Adaptive, Supportive or Protective Equipment (ICD-10-PCS; 2018-08-06)
DX: S72.001D Fracture of unspecified part of neck of right femur, subsequent encounter for closed fracture with routine healing (principal); I82.90 Acute embolism and thrombosis of unspecified vein; N39.0 Urinary tract infection, site not specified; Z98.890 Other specified postprocedural states; I10 Essential (primary) hypertension; J44.9 Chronic obstructive pulmonary disease, unspecified; E11.9 Type 2 diabetes mellitus without complications; E78.5 Hyperlipidemia, unspecified; Z79.4 Long term (current) use of insulin
CPT/HCPCS: 36415; 36600; 71045; 80048; 80053; 82803; 82962; 85007; 85027; 94150; J7613; A4450; A9270-GY; J1815

== ENCOUNTER 2018-08-11 09:35 | Inpatient (IN) | payer MEDICARE, BC ==
[2018-08-11 12:34] VITALS: O2SAT 86
[2018-08-11] MEDS ORDERED: SODIUM CHLORIDE 0.9% 1000ML 1,000 ML IV SCH (14:00)
[2018-08-11] MEDS ORDERED: ACETAMINOPHEN 325 MG PO PRN (14:00)
[2018-08-11] MEDS ORDERED: POLYETHYLENE GLYCOL 17 GM/1 TBS PDS PO PRN (14:13)
[2018-08-11] MEDS ORDERED: TRAMADOL HYDROCHLORIDE 50 MG TAB PO PRN (14:13)
[2018-08-11] MEDS ORDERED: NOVOLOG FLEXPEN SC SCH ×2 (17:30→18:00)
[2018-08-11] MEDS ORDERED: PRIMIDONE 250 MG PO SCH (21:00)
[2018-08-11] MEDS ORDERED: SERTRALINE HYDROCHLORIDE 50 MG TAB PO SCH (21:00)
[2018-08-11] MEDS ORDERED: TOPIRAMATE 25 MG TAB PO SCH (21:00)
[2018-08-11] MEDS ORDERED: SIMVASTATIN 20 MG TAB PO SCH (21:00)
[2018-08-11] MEDS ORDERED: FAMOTIDINE 20 MG TAB PO SCH (21:00)
[2018-08-11] MEDS ORDERED: LACTOBACILLUS RHAMNOSUS GG PO SCH (21:00)
[2018-08-12] MEDS ORDERED: TAMSULOSIN HYDROCHLORIDE 0.4 MG CAP PO SCH (09:00)
[2018-08-12] MEDS ORDERED: PROPRANOLOL HCL 60 MG PO SCH (09:00)
[2018-08-12] MEDS ORDERED: LISINOPRIL 5 MG TAB PO SCH (09:00)
[2018-08-12] MEDS ORDERED: SENNOSIDES A AND B 8.6 MG TAB PO SCH (09:00)
[2018-08-12] MEDS ORDERED: ASPIRIN EC 81 MG PO SCH (09:00)
[2018-08-12] MEDS ORDERED: TIOTROPIUM BROMIDE 18 MCG CAP INH SCH (09:00)
== END 2018-08-11 14:30 | disposition short-term general hospital (02) | DRG 394 ==
LOC: ACUTE CARE 09:35
PROVIDERS: ADMIT Family Medicine; ATTEND Family Medicine
DX: T18.198A Other foreign object in esophagus causing other injury, initial encounter (principal); I82.409 Acute embolism and thrombosis of unspecified deep veins of unspecified lower extremity; N30.00 Acute cystitis without hematuria; S72.001D Fracture of unspecified part of neck of right femur, subsequent encounter for closed fracture with routine healing; J44.9 Chronic obstructive pulmonary disease, unspecified; E11.9 Type 2 diabetes mellitus without complications; I10 Essential (primary) hypertension; E86.0 Dehydration
CPT/HCPCS: 82962; A9270-GY; J1815

== ENCOUNTER 2018-09-15 13:16 | Outpatient (CLI) | payer MEDICARE, BC | END 2018-09-15 13:17 | disposition home or self-care (01) | DRG 950 | LOC: CONVCARE 13:16 | PROVIDERS: ATTEND Orthopaedic Surgery | DX: Z51.89 Encounter for other specified aftercare (principal); Z98.890 Other specified postprocedural states; S72.001D Fracture of unspecified part of neck of right femur, subsequent encounter for closed fracture with routine healing | CPT/HCPCS: 73502 ==